=== PATIENT | male | born 1960 | race American Indian/Alaskan Native ===

== ENCOUNTER 2019-02-06 06:41 | Emergency (ER) | payer MEDICAID, MEDICARE ==
[2019-02-06 06:50] VITALS: BP 141/85
[2019-02-06] MEDS ORDERED: SOLU-Medrol IM ONE (08:44)
--- NOTE | 2019-02-06 09:11 | Emergency Department Report ---
HPI - General Chief Complaint: Extremity Injury, Lower Time Seen by Provider: 02/06/19 08:19 - HPI HPI: 58-year-old -[place] male presents to the emergency department with a complaint of a gout flareup and being out of his medications. The patient lives in [place] and has to drive home there, hoping to leave today. He has a history of [id number] diabetes, hypertension and gout. He follows with a grooming salon manager back in [place] for the gout and says that he has been placed on allopurinol and colchicine daily. He ran out of the colchicine one week ago and the allopurinol a few days ago, over the weekend. He complains of some pain and redness to the right ankle and lateral foot. He says that he has had recent blood work done through his primary care physician and grooming salon manager in that he has normal functioning kidneys and liver. He has tried some [id number]-[id number]-[id number] remedies such as turmeric. ED Past Medical Hx - Past Medical History Previous Medical History?: Yes Hx Hypertension: Yes Hx Diabetes: Yes Additional medical history: gout - Social History Smoking Status: Never Smoker - Medications Home Medications: Home Medications Medication Instructions Recorded Confirmed Last Taken Type Allopurinol [Zyloprim] 600 mg PO QDAY #14 tablet 02/06/19 Unknown Rx Colchicine 0.6 mg PO BID #14 capsule 02/06/19 Unknown Rx ED Review of Systems ROS: Stated complaint: GOUT Other details as noted in HPI Comment: All other systems reviewed and negative Constitutional: denies: chills, fever Respiratory: denies: cough, shortness of breath Cardiovascular: denies: chest pain, palpitations Musculoskeletal: arthralgia, myalgia Skin: change in color (redness to right ankle). denies: pruritus Neurological: denies: numbness, paresthesias Physical Exam - Physical Exam Vital Signs: Vital Signs 02/06/19 06:47 Temperature 98.1 F Pulse Rate 109 H Respiratory 18 Rate Blood Pressure 141/85 O2 Sat by Pulse 97 Oximetry Physical Exam: GENERAL: The patient is well-developed well-nourished. HENT: Normocephalic. Atraumatic. Patient has moist mucous membranes. EYES: Extraocular motions are intact. NECK: Supple. Trachea is midline. CHEST/LUNGS: Clear to auscultation. There is no respiratory distress noted. HEART/CARDIOVASCULAR: Regular. There is no tachycardia. There is no murmur. ABDOMEN: Abdomen is soft, nontender. Patient has normal bowel sounds. There is no abdominal distention. SKIN: There is some mild swelling and warmth to the right ankle, worse to the lateral portion, but no erythema. No rash or skin color change. NEURO: The patient is awake, alert, and oriented. The patient is cooperative. The patient has no focal neurologic deficits. Normal speech. MUSCULOSKELETAL: There is some mild tenderness to palpation to the right ankle and midfoot. There is no limitation range of motion. ED Course Vital Signs 02/06/19 06:47 Temperature 98.1 F Pulse Rate 109 H Respiratory 18 Rate Blood Pressure 141/85 O2 Sat by Pulse 97 Oximetry ED Medical Decision Making - Medical Decision Making This patient has a history of gout and has been out of his medications that he takes for both prophylaxis and/or treatment. The area of his complaint/discomfort does have some swelling and mild warmth but there is no erythema or fluctuance. An Accu-Chek was done that showed a blood sugar of about 130 so the patient was given a Solu-Medrol IM injection. He was given a short refill of his colchicine and allopurinol. He is leaving today to drive back to [place] where he can follow-up with his primary care physician and grooming salon manager. Vital signs stable throughout his ED course. Critical Care Time: No Critical care attestation.: If time is entered above; I have spent that time in minutes in the direct care of this critically ill patient, excluding procedure time. ED Disposition Clinical Impression: Medication refill Gout Qualifiers: Gout site: unspecified site Encounter type: initial encounter Chronicity: unspecified Disposition: DC- TO HOME OR SELFCARE Is pt being admited?: No Condition: Stable Instructions: Allopurinol (By mouth), Colchicine (By mouth), Acute Gouty Arthritis (ED) Additional Instructions: Please follow-up with your primary care physician and grooming salon manager when you return to [place]. Return to the emergency Department with any worsening of your symptoms or any acute distress. Prescriptions: Colchicine 0.6 mg PO BID #14 capsule Allopurinol [Zyloprim] 600 mg PO QDAY #14 tablet Referrals: PRIMARY CARE [Primary Care Provider] - 2-3 Days Time of Disposition: 09:10
== END 2019-02-06 09:28 | disposition home or self-care (01) ==
LOC: ED 06:41
DX: M10.9 Gout, unspecified (principal); I10 Essential (primary) hypertension; E11.9 Type 2 diabetes mellitus without complications; Z76.0 Encounter for issue of repeat prescription; Z79.899 Other long term (current) drug therapy
CPT/HCPCS: 82962; 96372; 99282; J2930